=== PATIENT | male | born 1940 | race Caucasian/White ===

== ENCOUNTER 2016-12-16 15:24 | Emergency (ER) | payer MEDICARE, BC ==
[2016-12-16] MEDS ORDERED: Sodium Chloride 0.9% 10 ML Syringe FLUSH PRN ×2 (15:37→16:52)
[2016-12-16] MEDS ORDERED: Nitroglycerin 0.4 MG Tab.SL ONE (15:39)
[2016-12-16] MEDS: Nitroglycerin 0.4 MG Tab.SL SL PRN ×2 (15:41→15:50)
--- NOTE | 2016-12-16 15:41 | EDM.PDOC ---
ED HPI GENERAL MEDICAL PROBLEM - General Chief Complaint: Chest Pain Stated Complaint: CHEST PAIN Time Seen by Provider: 12/16/16 15:37 Source of Information: Reports: Patient, RN Notes Reviewed History Limitations: Reports: No Limitations - History of Present Illness INITIAL COMMENTS - FREE TEXT/NARRATIVE: 76-year-old gentleman presents emergency department day complaint chest pain chest discomfort, he states it started about 2-1/2 hours prior he was sitting at rest he does feel nauseated does feel short of breath no diaphoresis, does have a coronary artery disease with stenting back in 1999 stent 1 he did take 3 aspirin prior to arrival Middle Chest Pain Score (Numeric/FACES): 6 - Related Data Allergies Allergy/AdvReac Type Severity Reaction Status Date / Time No Known Allergies Allergy Verified 12/16/16 15:38 Home Meds: Home Meds Allopurinol [Zyloprim] 300 mg PO DAILY 12/16/16 [History] Aspirin [Ecotrin] 325 mg PO DAILY 12/16/16 [History] Lisinopril [Lisinopril] 20 mg PO DAILY 12/16/16 [History] [place]-3/DHA/Epa/Fish Oil [Fish Oil 1,000 mg Softgel] 2 each PO DAILY 12/16/16 [ History] Pravastatin Sodium [Pravastatin Sodium] 80 mg PO DAILY 12/16/16 [History] Past Medical History Cardiovascular History: Reports: CAD, High Cholesterol, Hypertension Social & Family History - Tobacco Use Smoking Status *Q: Never Smoker ED ROS GENERAL - Review of Systems Review Of Systems: See Below Constitutional: Reports: No Symptoms HEENT: Reports: No Symptoms Respiratory: Reports: Shortness of Breath Cardiovascular: Reports: Chest Pain GI/Abdominal: Reports: Nausea. Denies: Abdominal Pain : Reports: No Symptoms Musculoskeletal: Reports: No Symptoms Skin: Reports: No Symptoms ED EXAM, GENERAL - Physical Exam Exam: See Below Exam Limited By: No Limitations General Appearance: Alert, WD/WN, Mild Distress Nose: Normal Inspection Throat/Mouth: Normal Inspection, Normal Lips, Normal Teeth, Normal Gums, Normal Oropharynx, Normal Voice, No Airway Compromise Head: Atraumatic, Normocephalic Neck: Normal Inspection, Supple, Non-Tender, Full Range of Motion Respiratory/Chest: No Respiratory Distress, Lungs Clear, Normal Breath Sounds, No Accessory Muscle Use Cardiovascular: Regular Rate, Rhythm, No Murmur GI/Abdominal: Soft, Non-Tender Extremities: Non-Tender, No Pedal Edema Course - Vital Signs Last Recorded V/S: Last Vital Signs Temp 95.6 F 12/16/16 15:55 Pulse 65 12/16/16 17:02 Resp 16 12/16/16 17:02 BP 181/75 H 12/16/16 17:02 Pulse Ox 99 12/16/16 17:02 - Orders/Labs/Meds Orders: Active Orders 24 hr Category Date Time Status Cardiac Monitoring [RC] .As Directed Care 12/16/16 15:38 Active EKG Documentation Completion [RC] ASDIRECTED Care 12/16/16 15:38 Active EKG Documentation Completion [RC] ASDIRECTED Care 12/16/16 16:50 Ordered Peripheral IV Care [RC] . DIRECTED Care 12/16/16 15:38 Active Peripheral IV Care [RC] . DIRECTED Care 12/16/16 16:52 Ordered Chest 1V Frontal [CR] Stat Exams 12/16/16 15:38 Taken Heparin Sodium/D5W [Heparin 25,000 Units in D5W 500 ML] Med 12/16/16 16:45 Active 25,000 units in 500 ml IV TITRATE Nitroglycerin 25 MG in D5W @ 10 MCG/MIN(250ml) Premix Med 12/16/16 17:00 Ordered Nitroglycerin/D5W [Nitroglycerin 25 MG/D5W 250 ML] 25 mg in 250 ml IV TITRATE Nitroglycerin [Nitrostat] Med 12/16/16 15:37 Active 0.4 mg SL Q5M PRN Sodium Chloride 0.9% [Normal Saline] 1,000 ml Med 12/16/16 16:30 Active IV ASDIRECTED Sodium Chloride 0.9% [Saline Flush] Med 12/16/16 15:37 Active 10 ml FLUSH ASDIRECTED PRN Sodium Chloride 0.9% [Saline Flush] Med 12/16/16 16:52 Ordered 10 ml FLUSH ASDIRECTED PRN Peripheral IV Insertion Adult [OM.PC] Stat Oth 12/16/16 15:37 Ordered Peripheral IV Insertion Adult [OM.PC] Urgent Oth 12/16/16 16:52 Ordered Saline Lock Insert [OM.PC] Stat Oth 12/16/16 15:37 Ordered EKG 12 Lead [EK] Stat Ther 12/16/16 15:38 Ordered EKG 12 Lead [EK] Stat Ther 12/16/16 16:49 Ordered Medication Orders Sodium Chloride (Normal Saline) 1,000 mls @ 999 mls/hr IV ASDIRECTED GREGORY Last Admin: 12/16/16 16:21 Dose: 999 mls/hr Heparin Sodium/Dextrose (Heparin 25,000 Units In D5w 500 Ml) 25,000 units in 500 mls @ 23.064 mls/hr IV TITRATE GREGORY; 12 UNITS/KG/HR PRN Reason: Protocol Last Admin: 12/16/16 16:46 Dose: 12 units/kg/hr, 23.064 mls/hr Nitroglycerin/Dextrose (Nitroglycerin 25 Mg/D5w 250 Ml) 25 mg in 250 mls @ 6 mls/hr IV TITRATE GREGORY; 10 MCG/MIN PRN Reason: Protocol Last Admin: 12/16/16 16:55 Dose: 10 mcg/min, 6 mls/hr Nitroglycerin (Nitrostat) 0.4 mg SL Q5M PRN PRN Reason: Chest Pain Stop: 12/17/16 15:38 Last Admin: 12/16/16 15:50 Dose: 0.4 mg Admin: 12/16/16 15:41 Dose: 0.4 mg Sodium Chloride (Saline Flush) 10 ml FLUSH ASDIRECTED PRN PRN Reason: Keep Vein Open Last Admin: 12/16/16 16:09 Dose: 10 ml Sodium Chloride (Saline Flush) 10 ml FLUSH ASDIRECTED PRN PRN Reason: Keep Vein Open Labs: Laboratory Tests 12/16/16 12/16/16 12/16/16 Range/Units 15:34 15:34 15:34 WBC 10.7 (4.5-11.0) K/uL RBC 5.56 (4.30-5.90) M/uL Hgb 17.4 H (12.0-15.0) g/dL Hct 50.3 (40.0-54.0) % MCV 91 (80-98) fL MCH 31 (27-31) pg MCHC 35 (32-36) % Plt Count 164 (150-400) K/uL Neut % (Auto) 47 (36-66) % Lymph % (Auto) 37 (24-44) % [place] % (Auto) 8 H (2-6) % Eos % (Auto) 7 H (2-4) % Baso % (Auto) 1 (0-1) % PT 10.6 (9.5-12.0) sec INR 0.99 (0.80-1.20) APTT 26.3 L (27.0-36.0) sec Sodium 141 (140-148) mmol/L Potassium 4.5 (3.6-5.2) mmol/L Chloride 101 (100-108) mmol/L Carbon Dioxide 25 (21-32) mmol/L Anion Gap 14.6 H (5.0-14.0) mmol/L BUN 20 H (7-18) mg/dL Creatinine 1.2 (0.8-1.3) mg/dL Est Cr Clr Drug Dosing 51.55 mL/min Estimated GFR (MDRD) 59 L (>60) Glucose 145 H (74-106) mg/dL Calcium 9.1 (8.5-10.1) mg/dL Total Bilirubin 0.4 (0.2-1.0) mg/dL AST 37 (15-37) U/L ALT 32 (12-78) U/L Alkaline Phosphatase 82 (46-116) U/L CK-MB (CK-2) 10.8 H* (0-3.6) mg/mL Troponin I 5.643 H* (0.000-0.056) ng/mL Total Protein 8.5 H (6.4-8.2) g/dL Albumin 3.8 (3.4-5.0) g/dL Globulin 4.7 H (2.3-3.5) g/dL Albumin/Globulin Ratio 0.8 L (1.2-2.2) Meds: Medications Generic Name Dose Route Start Last Admin Trade Name Freq PRN Reason Stop Dose Admin Sodium Chloride 1,000 mls @ 999 mls/hr 12/16/16 16:30 12/16/16 16:21 Normal Saline IV 999 mls/hr ASDIRECTED GREGORY Administration Heparin Sodium/Dextrose 25,000 units in 500 mls @ 23.064 mls/hr 12/16/16 16: 45 12/16/16 16:46 Heparin 25,000 Units In D5w 500 Ml IV 12 units/kg/hr TITRATE GREGORY 23.064 mls/hr Protocol Administration 12 UNITS/KG/HR Nitroglycerin/Dextrose 25 mg in 250 mls @ 6 mls/hr 12/16/16 17:00 12/16/16 16 :55 Nitroglycerin 25 Mg/D5w 250 Ml IV 10 mcg/min TITRATE GREGORY 6 mls/hr Protocol Administration 10 MCG/MIN Nitroglycerin 0.4 mg 12/16/16 15:37 12/16/16 15:50 Nitrostat SL 12/17/16 15:38 0.4 mg Q5M PRN Administration Chest Pain Sodium Chloride 10 ml 12/16/16 15:37 12/16/16 16:09 Saline Flush FLUSH 10 ml ASDIRECTED PRN Administration Keep Vein Open Sodium Chloride 10 ml 12/16/16 16:52 Saline Flush FLUSH ASDIRECTED PRN Keep Vein Open Discontinued Medications Generic Name Dose Route Start Last Admin Trade Name Freq PRN Reason Stop Dose Admin Clopidogrel Bisulfate 300 mg 12/16/16 16:32 12/16/16 16:40 Plavix PO 12/16/16 16:33 300 mg ONETIME ONE Administration Heparin Sodium (Porcine) 4,000 units 12/16/16 16:32 12/16/16 16:39 Heparin Sodium IVPUSH 12/16/16 16:33 4,000 units ONETIME ONE Administration Heparin Sodium (Porcine) Confirm 12/16/16 16:35 12/16/16 16:40 Heparin Sodium Administered 12/16/16 16:36 Not Given Dose 5,000 units .ROUTE .STK-MED ONE Heparin Sodium/Dextrose Confirm 12/16/16 16:35 12/16/16 16:39 Heparin 25,000 Units In D5w 500 Ml Administered 12/16/16 16:36 Not Given Dose 500 mls @ as directed .ROUTE .STK-MED ONE Nitroglycerin/Dextrose Confirm 12/16/16 16:53 12/16/16 16:59 Nitroglycerin 25 Mg/D5w 250 Ml Administered 12/16/16 16:54 Not Given Dose 25 mg in 250 mls @ as directed .ROUTE .STK-MED ONE Morphine Sulfate 2 mg 12/16/16 16:01 12/16/16 16:04 Morphine IVPUSH 12/16/16 16:02 2 mg ONETIME ONE Administration Morphine Sulfate Confirm 12/16/16 16:02 12/16/16 16:09 Morphine Administered 12/16/16 16:03 Not Given Dose 2 mg .ROUTE .STK-MED ONE Nitroglycerin Confirm 12/16/16 15:39 12/16/16 15:40 Nitrostat Administered 12/16/16 15:40 Not Given Dose 0.4 mg .ROUTE .STK-MED ONE Departure - Departure Time of Disposition: 17:15 Disposition: DC/Tfer to Acute Hospital 02 Reason for Transfer *Q: Primary PCI Indicated Condition: Good Clinical Impression: Non-ST elevation myocardial infarction (NSTEMI) Forms: ED Department Discharge - My Orders Last 24 Hours: My Active Orders 12/16/16 15:37 Nitroglycerin [Nitrostat] 0.4 mg SL Q5M PRN Sodium Chloride 0.9% [Saline Flush] 10 ml FLUSH ASDIRECTED PRN Peripheral IV Insertion Adult [OM.PC] Stat Saline Lock Insert [OM.PC] Stat 12/16/16 15:38 Cardiac Monitoring [RC] .As Directed EKG Documentation Completion [RC] ASDIRECTED Peripheral IV Care [RC] . DIRECTED Chest 1V Frontal [CR] Stat EKG 12 Lead [EK] Stat 12/16/16 16:30 Sodium Chloride 0.9% [Normal Saline] 1,000 ml IV ASDIRECTED 12/16/16 16:45 Heparin Sodium/D5W [Heparin 25,000 Units in D5W 500 ML] 25,000 units in 500 ml IV TITRATE 12/16/16 16:49 EKG 12 Lead [EK] Stat 12/16/16 16:50 EKG Documentation Completion [RC] ASDIRECTED 12/16/16 16:52 Peripheral IV Care [RC] . DIRECTED Sodium Chloride 0.9% [Saline Flush] 10 ml FLUSH ASDIRECTED PRN Peripheral IV Insertion Adult [OM.PC] Urgent 12/16/16 17:00 Nitroglycerin 25 MG in D5W @ 10 MCG/MIN(250ml) Premix Nitroglycerin/D5W [ Nitroglycerin 25 MG/D5W 250 ML] 25 mg in 250 ml IV TITRATE - Assessment/Plan Last 24 Hours: My Active Orders 12/16/16 15:37 Nitroglycerin [Nitrostat] 0.4 mg SL Q5M PRN Sodium Chloride 0.9% [Saline Flush] 10 ml FLUSH ASDIRECTED PRN Peripheral IV Insertion Adult [OM.PC] Stat Saline Lock Insert [OM.PC] Stat 12/16/16 15:38 Cardiac Monitoring [RC] .As Directed EKG Documentation Completion [RC] ASDIRECTED Peripheral IV Care [RC] . DIRECTED Chest 1V Frontal [CR] Stat EKG 12 Lead [EK] Stat 12/16/16 16:30 Sodium Chloride 0.9% [Normal Saline] 1,000 ml IV ASDIRECTED 12/16/16 16:45 Heparin Sodium/D5W [Heparin 25,000 Units in D5W 500 ML] 25,000 units in 500 ml IV TITRATE 12/16/16 16:49 EKG 12 Lead [EK] Stat 12/16/16 16:50 EKG Documentation Completion [RC] ASDIRECTED 12/16/16 16:52 Peripheral IV Care [RC] . DIRECTED Sodium Chloride 0.9% [Saline Flush] 10 ml FLUSH ASDIRECTED PRN Peripheral IV Insertion Adult [OM.PC] Urgent 12/16/16 17:00 Nitroglycerin 25 MG in D5W @ 10 MCG/MIN(250ml) Premix Nitroglycerin/D5W [ Nitroglycerin 25 MG/D5W 250 ML] 25 mg in 250 ml IV TITRATE Plan: Assessment Acuity = acute Site and laterality = non-ST elevation myocardial infarction complicated patient with known history of coronary artery disease, hypertension and dyslipidemia Etiology = probably secondary coronary artery disease Manifestations = chest pain stable, hypoxia Location of injury = Home Lab values = hemoglobin elevated at 17.4 INR normal 0.99 CK-MB elevated at 10.8 and troponin I elevated to 5.64 consistent with non-ST elevation myocardial infarction EKG demonstrates a sinus rhythm there is ST depression appreciated before and V5 V2 V3, V4, chest x-ray I did review films myself I cannot appreciate any acute process, the official read from radiology is pending Plan Called and discussed the case with Dr. Nunez and Dr. Hale from cardiology who kindly accepted the patient in transport, he has been given 2 mg of morphine to nitroglycerin sublingual he is started on a nitro drip he was given a 4000 unit heparin bolus started on a heparin drip, repeat EKG shows resolution of ST depressions, he did take aspirin at home prior to arrival at this time his pain is 2 out of 10 but improved from admission Patient was in agreement with the plan all questions were answered, This note was dictated using [employer] voice recognition software please call with any questions.
[2016-12-16] MEDS ORDERED: Morphine 2 MG/ML Syringe IVPUSH ONE (16:01)
[2016-12-16] MEDS ORDERED: Morphine 2 MG/ML Syringe ONE (16:02)
[2016-12-16] MEDS ORDERED: Sodium Chloride 0.9% 1,000 ML IV SCH (16:30)
[2016-12-16] MEDS ORDERED: Clopidogrel 75 MG Tab PO ONE (16:32)
[2016-12-16] MEDS ORDERED: Heparin Sodium 5,000 Units/ML Vial IVPUSH ONE (16:32)
[2016-12-16] MEDS ORDERED: Heparin Sodium 5,000 Units/ML Vial ONE (16:35)
[2016-12-16] MEDS ORDERED: Heparin Sodium/D5W 500 ML ONE (16:35)
[2016-12-16] MEDS ORDERED: Heparin Sodium/D5W 25,000 UNITS/500 ML BAG IV SCH (16:45)
[2016-12-16] MEDS ORDERED: Nitroglycerin/D5W 25 MG/250 ML BOTTLE ONE (16:53)
[2016-12-16] MEDS ORDERED: Nitroglycerin/D5W 25 MG/250 ML BOTTLE IV SCH (17:00)
[2016-12-16 18:14] VITALS: BP 192/129
--- NOTE | 2016-12-17 09:31 | CR ---
Chest 1V Frontal HISTORY: Chest Pain COMPARISON: None FINDINGS: Portable chest, 1552 hours. Lungs appear clear and normally aerated. Cardiomediastinal silhouette is within normal limits. No va scular redistribution or pleural fluid can be seen. Bony structures and soft tissues are unremarkabl e. IMPRESSION: No acute chest abnormality identified.
== END 2016-12-16 18:15 ==
LOC: JP.ED 15:24
DX: I21.4 Non-ST elevation (NSTEMI) myocardial infarction (principal); I25.10 Atherosclerotic heart disease of native coronary artery without angina pectoris; I10 Essential (primary) hypertension; E78.00 Pure hypercholesterolemia, unspecified; Z79.899 Other long term (current) drug therapy; Z79.82 Long term (current) use of aspirin
CPT/HCPCS: 36415; 71010; 80053; 82553; 84484; 85025; 85610; 85730; 93005; 96365; 96375; 99285; A9270; J1644; J2270; J7040; J7050; 93010; 99284